=== PATIENT | female | born 1995 ===

== ENCOUNTER 2019-07-22 22:42 | Inpatient (IN) | payer MEDICAID ==
[2019-07-22] MEDS ORDERED: Sodium Chloride 0.9% 10 ML SDV IV PRN (23:25)
[2019-07-22] MEDS ORDERED: Tranexamic Acid 1,000 MG in Sodium Chloride 0.9% 100 ML IV PRN (23:25)
[2019-07-22] MEDS ORDERED: Butorphanol 1 MG/ML SDV IVPUSH PRN (23:25)
[2019-07-22] MEDS ORDERED: Sodium Chloride 0.9% 10 ML Syringe FLUSH PRN (23:25)
[2019-07-22] MEDS ORDERED: Methylergonovine 0.2 MG/1 ML Amp IM PRN (23:25)
[2019-07-22] MEDS ORDERED: Misoprostol 200 MCG Tab PO PRN (23:25)
[2019-07-22] MEDS ORDERED: Ampicillin 2 GM in Sodium Chloride 0.9% 100 ML IV ONE (23:25)
[2019-07-22] MEDS ORDERED: Water For Irrigation,Sterile 1,000 ML Container IRR PRN (23:25)
[2019-07-22] MEDS ORDERED: Ondansetron 4 MG/2 ML SDV IVPUSH PRN (23:25)
[2019-07-22] MEDS ORDERED: Lidocaine 1% 50 ML MDV INJECT PRN (23:25)
[2019-07-22] MEDS ORDERED: Nalbuphine 10 MG/1 ML Vial IVPUSH PRN (23:25)
[2019-07-22] MEDS ORDERED: Carboprost Tromethamine 250 MCG/1 ML Amp IM PRN (23:25)
[2019-07-22] MEDS ORDERED: Sodium Chloride 0.9% 2.5 ML Syringe FLUSH PRN (23:25)
[2019-07-22] MEDS ORDERED: Oxytocin/0.9 % Sodium Chloride 30 UNIT/500 ML BAG IV SCH ×2 (23:30)
[2019-07-22] MEDS ORDERED: Terbutaline 1 MG/ML SDV SUBCUT PRN (23:30)
[2019-07-22] MEDS ORDERED: Misoprostol 25 MCG (1/4 of 100 MCG) Tab VAG PRN (23:30)
[2019-07-22] MEDS ORDERED: Misoprostol 25 MCG (1/4 of 100 MCG) Tab PO PRN (23:30)
--- NOTE | 2019-07-23 00:12 | PCM.LDHP ---
L&D History of Present Illness - General Date of Service: 07/23/19 Admit Problem/Dx: Patient Status Order with Admit Dx/Problem 07/22/19 23:04 Patient Status [ADT] Routine 07/22/19 23:26 Patient Status [ADT] Routine Admission Diagnosis/Problem Admission Diagnosis/Problem 07/23/19 00:07 at 40 1/7 weeks presenting with complaints of leaking fluid x2 days; amnisure positive; GBS positive; A+, Rubella immune 07/23/19 00:13 Source of Information: Patient History Limitations: Reports: No Limitations - Related Data Allergies/Adverse Reactions: Allergies Allergy/AdvReac Type Severity Reaction Status Date / Time No Known Allergies Allergy Verified 05/29/19 14:39 H&P Review of Systems - Review of Systems: Review Of Systems: See Below General: Reports: No Symptoms HEENT: Reports: No Symptoms Pulmonary: Reports: No Symptoms Cardiovascular: Reports: No Symptoms Gastrointestinal: Reports: No Symptoms Genitourinary: Reports: No Symptoms Musculoskeletal: Reports: No Symptoms Skin: Reports: No Symptoms Psychiatric: Reports: No Symptoms Neurological: Reports: No Symptoms Hematologic/Lymphatic: Reports: No Symptoms Immunologic: Reports: No Symptoms L&D Exam - Exam Exam: See Below - Vital Signs Weight: 170 lb - OB Specific Movement: Active Heart Tones: Present Heart Rate (FHR) Variability: Moderate (6-25 bmp) - Kay Score Kay Score Cervix Position: Posterior Kay Score Consistency: Firm Kay Score Effacement: 0-30% Kay Score Dilation: 1-2 cm Kay Score Infant's Station: -3 Kay Score Total: 1 - Exam General: Alert, Oriented, Cooperative Lungs: Normal Respiratory Effort GI/Abdominal Exam: Soft, Non-Tender Rectal Exam: Deferred Genitourinary: Deferred Back Exam: Normal Inspection, Full Range of Motion Extremities: Normal Inspection, Normal Range of Motion, Non-Tender, Normal Capillary Refill Skin: Warm, Dry, Intact Neurological: Strength Equal Bilateral, Normal Gait, Normal Speech, Normal Tone , Sensation Intact Psychiatric: Alert, Normal Affect, Normal Mood - Patient Data Lab Results Last 24 hrs: Laboratory Results - last 24 hr 07/22/19 Range/Units 23:00 Membrane Rupture POSITIVE - Problem List (1) Supervision of normal IUP (intrauterine ) in primigravida SNOMED Code(s): 78746342, 645335306, 112054668, 189507797 ICD Code: Z34.00 - ENCNTR FOR SUPRVSN OF NORMAL FIRST , UNSP TRIMESTER Status: Acute Priority: High Current Visit: Yes Qualifiers: Trimester: third trimester Qualified Code(s): Z34.03 - Encounter for supervision of normal first , third trimester Problem List Initiated/Reviewed/Updated: Yes Orders Last 24hrs: Active Orders 24 hr Category Date Time Status Patient Status [ADT] Routine ADT 07/22/19 23:26 Active Bedrest Bathroom Privileges [RC] ASDIRECTED Care 07/22/19 23:30 Active Communication Order [RC] ASDIRECTED Care 07/22/19 23:30 Active Communication Order [RC] ASDIRECTED Care 07/22/19 23:30 Active Communication Order [RC] ASDIRECTED Care 07/22/19 23:30 Active Heart Tones [RC] CONTINUOUS Care 07/22/19 23:26 Active Non Stress Test [RC] PER UNIT ROUTINE Care 07/22/19 23:04 Active Non Stress Test [RC] PER UNIT ROUTINE Care 07/22/19 23:26 Active May Shower [RC] ASDIRECTED Care 07/22/19 23:26 Active Notify Provider [RC] PRN Care 07/22/19 23:26 Active Notify Provider [RC] PRN Care 07/22/19 23:30 Active Notify Provider [RC] PRN Care 07/22/19 23:30 Active Notify Provider [RC] STAT Care 07/22/19 23:30 Active Oxygen Therapy [RC] ASDIRECTED Care 07/22/19 23:30 Active Up ad Leigh [RC] ASDIRECTED Care 07/22/19 23:04 Active Up ad Leigh [RC] ASDIRECTED Care 07/22/19 23:26 Active Vaginal Exam [RC] Click to Edit Care 07/22/19 23:04 Active Vaginal Exam [RC] PRN Care 07/22/19 23:26 Active Vaginal Exam [RC] PRN Care 07/22/19 23:30 Active Vital Signs [RC] PER UNIT ROUTINE Care 07/22/19 23:04 Active Vital Signs [RC] PER UNIT ROUTINE Care 07/22/19 23:26 Active Vital Signs [RC] PER UNIT ROUTINE Care 07/22/19 23:30 Active CBC W/O DIFF,HEMOGRAM [HEME] Routine Lab 07/22/19 23:26 Ordered RPR (SYPHILIS SERO) W/ RFLX [REF] Routine Lab 07/22/19 23:26 Ordered TYPE AND SCREEN [BBK] Routine Lab 07/22/19 23:26 Ordered Butorphanol [Stadol] Med 07/22/19 23:25 Active 1 mg IVPUSH Q1H PRN Carboprost Tromethamine [Hemabate DS] Med 07/22/19 23:25 Active 250 mcg IM ASDIRECTED PRN Lactated Ringers [Ringers, Lactated] 1,000 ml Med 07/22/19 23:30 Active IV ASDIRECTED Lidocaine 1% [Xylocaine 1%] Med 07/22/19 23:25 Active 50 ml INJECT ONETIME PRN Methylergonovine [Methergine] Med 07/22/19 23:25 Active 0.2 mg IM ASDIRECTED PRN Nalbuphine [Nubain] Med 07/22/19 23:25 Active 10 mg IVPUSH Q1H PRN Ondansetron [Zofran] Med 07/22/19 23:25 Active 4 mg IVPUSH Q6H PRN Oxytocin/0.9 % Sodium Chloride [Oxytocin 30 Unit/500 ML Med 07/22/19 23:30 Active -NS] 30 unit in 500 ml IV TITRATE Oxytocin/0.9 % Sodium Chloride [Oxytocin 30 Unit/500 ML Med 07/22/19 23:30 Active -NS] 30 unit in 500 ml IV TITRATE Sodium Chloride 0.9% [Normal Saline] Med 07/22/19 23:25 Active 10 ml IV ASDIRECTED PRN Sodium Chloride 0.9% [Saline Flush] Med 07/22/19 23:25 Active 10 ml FLUSH ASDIRECTED PRN Sodium Chloride 0.9% [Saline Flush] Med 07/22/19 23:25 Active 2.5 ml FLUSH ASDIRECTED PRN Terbutaline [Brethine] Med 07/22/19 23:30 Active 0.25 mg SUBCUT ASDIRECTED PRN Tranexamic Acid [Cyklokapron] 1,000 mg Med 07/22/19 23:25 Active Sodium Chloride 0.9% [Normal Saline] 100 ml IV ONETIME Water For Irrigation,Sterile [Sterile Water for Med 07/22/19 23:25 Active Irrigation] 1,000 ml IRR ASDIRECTED PRN miSOPROStoL [Cytotec] Med 07/22/19 23:25 Active 200 mcg PO ONETIME PRN miSOPROStoL [Cytotec] Med 07/22/19 23:30 Active 25 mcg PO Q4H PRN miSOPROStoL [Cytotec] Med 07/22/19 23:30 Active 25 mcg VAG Q4H PRN Scalp Electrode [WOMSER] Per Unit Routine Oth 07/22/19 23:26 Ordered Medication Administration Instruction [OM.PC] Q3H Oth 07/22/19 23:30 Ordered Peripheral IV Insertion Adult [OM.PC] Routine Oth 07/22/19 23:26 Ordered Resuscitation Status Routine Resus Stat 07/22/19 23:04 Ordered Medication Orders Butorphanol Tartrate (Stadol) 1 mg IVPUSH Q1H PRN PRN Reason: Pain Carboprost Tromethamine (Hemabate Ds) 250 mcg IM ASDIRECTED PRN PRN Reason: Post Hemorrhage Tranexamic Acid 1,000 mg/ (Sodium Chloride) 110 mls @ 660 mls/hr IV ONETIME PRN PRN Reason: Bleeding Lactated Ringer's (Ringers, Lactated) 1,000 mls @ 150 mls/hr IV ASDIRECTED VANESSA Oxytocin/Sodium Chloride (Oxytocin 30 Unit/500 Ml-Ns) 30 unit in 500 mls @ 999 mls/hr IV TITRATE VANESSA Oxytocin/Sodium Chloride (Oxytocin 30 Unit/500 Ml-Ns) 30 unit in 500 mls @ 2 mls/hr IV TITRATE [facility]; Protocol Lidocaine HCl (Xylocaine 1%) 50 ml INJECT ONETIME PRN PRN Reason: Laceration repair Methylergonovine Maleate (Methergine) 0.2 mg IM ASDIRECTED PRN PRN Reason: Post Hemorrhage Misoprostol (Cytotec) 200 mcg PO ONETIME PRN PRN Reason: Post Hemorrhage Misoprostol (Cytotec) 25 mcg VAG Q4H PRN PRN Reason: Cervical Ripening Misoprostol (Cytotec) 25 mcg PO Q4H PRN PRN Reason: Cervical Ripening Nalbuphine HCl (Nubain) 10 mg IVPUSH Q1H PRN PRN Reason: Pain (severe 7-10) Ondansetron HCl (Zofran) 4 mg IVPUSH Q6H PRN PRN Reason: Nausea/Vomiting Sodium Chloride (Saline Flush) 10 ml FLUSH ASDIRECTED PRN PRN Reason: Keep Vein Open Sodium Chloride (Saline Flush) 2.5 ml FLUSH ASDIRECTED PRN PRN Reason: Keep Vein Open Sodium Chloride (Normal Saline) 10 ml IV ASDIRECTED PRN PRN Reason: IV Use Sterile Water (Sterile Water For Irrigation) 1,000 ml IRR ASDIRECTED PRN PRN Reason: delivery Terbutaline Sulfate (Brethine) 0.25 mg SUBCUT ASDIRECTED PRN PRN Reason: Tacysystole Assessment/Plan Comment:: Admit A: at 40 1/7 weeks; GBS positive; A+, RI; positive amnisure; 1cm/25%/-3, firm, posterior P: Admit; start IV antibiotics; Cytotec PO and PV; anticipate ; Dr. Jose L gutierrez
[2019-07-23] MEDS: Lactated Ringers 1,000 ML IV SCH ×3 (01:04→10:48)
[2019-07-23] MEDS: Ampicillin 1 GM in Sodium Chloride 0.9% 50 ML IV SCH ×3 (05:06→12:58)
[2019-07-23] MEDS ORDERED: Ropivacaine HCl/PF 100 ML ONE (05:42)
[2019-07-23] MEDS ORDERED: fentaNYL 100 MCG/2 ML SDV ONE (05:42)
--- NOTE | 2019-07-23 06:03 | PCM.PREANE ---
Preanesthetic Assessment - Anesthesia/Transfusion/Family Hx Anesthesia History: No Prior Anesthesia - Physical Assessment NPO Status Date: 07/23/19 NPO Status Time: 00:05 Height: 1.78 m Weight: 77.111 kg ASA Class: 1 - Lab Values: Laboratory Last Values WBC 13.53 K/uL (4.0-11.0) H 07/23/19 00:35 RBC 4.62 M/uL (4.30-5.90) 07/23/19 00:35 Hgb 10.7 g/dL (12.0-16.0) L 07/23/19 00:35 Hct 33.6 % (36.0-46.0) L 07/23/19 00:35 MCV 72.7 fL (80.0-98.0) L 07/23/19 00:35 MCH 23.2 pg (27.0-32.0) L 07/23/19 00:35 MCHC 31.8 g/dL (31.0-37.0) 07/23/19 00:35 RDW Std Deviation 45.1 fl (28.0-62.0) 07/23/19 00:35 RDW Coeff of Zuleyma 18 % (11.0-15.0) H 07/23/19 00:35 Plt Count 303 K/uL (150-400) 07/23/19 00:35 MPV 9.50 fL (7.40-12.00) 07/23/19 00:35 Membrane Rupture POSITIVE 07/22/19 23:00 Blood Type A POSITIVE 07/23/19 00:35 Antibody Screen NEGATIVE 07/23/19 00:35 - Allergies Allergies/Adverse Reactions: Allergies Allergy/AdvReac Type Severity Reaction Status Date / Time No Known Allergies Allergy Verified 05/29/19 14:39 - Acknowledgements Anesthesia Type Planned: Epidural Pt an Appropriate Candidate for the Planned Anesthesia: Yes Alternatives and Risks of Anesthesia Discussed w Pt/Guardian: Yes Pt/Guardian Understands and Agrees with Anesthesia Plan: Yes PreAnesthesia Questionnaire - Past Health History Medical/Surgical History: Denies Medical/Surgical History [employer] History: Reports: - CURRENT (IN HOUSE) MEDS Current Meds: Current Medications Butorphanol Tartrate (Stadol) 1 mg IVPUSH Q1H PRN PRN Reason: Pain Carboprost Tromethamine (Hemabate Ds) 250 mcg IM ASDIRECTED PRN PRN Reason: Post Hemorrhage Tranexamic Acid 1,000 mg/ (Sodium Chloride) 110 mls @ 660 mls/hr IV ONETIME PRN PRN Reason: Bleeding Lactated Ringer's (Ringers, Lactated) 1,000 mls @ 150 mls/hr IV ASDIRECTED VANESSA Last Admin: 07/23/19 01:04 Dose: 125 mls/hr Oxytocin/Sodium Chloride (Oxytocin 30 Unit/500 Ml-Ns) 30 unit in 500 mls @ 999 mls/hr IV TITRATE [facility] Oxytocin/Sodium Chloride (Oxytocin 30 Unit/500 Ml-Ns) 30 unit in 500 mls @ 2 mls/hr IV TITRATE [facility]; Protocol Ampicillin Sodium 1 gm/ Sodium (Chloride) 50 mls @ 100 mls/hr IV Q4H [facility] Last Admin: 07/23/19 05:06 Dose: 100 mls/hr Lidocaine HCl (Xylocaine 1%) 50 ml INJECT ONETIME PRN PRN Reason: Laceration repair Methylergonovine Maleate (Methergine) 0.2 mg IM ASDIRECTED PRN PRN Reason: Post Hemorrhage Misoprostol (Cytotec) 200 mcg PO ONETIME PRN PRN Reason: Post Hemorrhage Misoprostol (Cytotec) 25 mcg VAG Q4H PRN PRN Reason: Cervical Ripening Last Admin: 07/23/19 01:05 Dose: 25 mcg Misoprostol (Cytotec) 25 mcg PO Q4H PRN PRN Reason: Cervical Ripening Last Admin: 07/23/19 01:05 Dose: 25 mcg Nalbuphine HCl (Nubain) 10 mg IVPUSH Q1H PRN PRN Reason: Pain (severe 7-10) Ondansetron HCl (Zofran) 4 mg IVPUSH Q6H PRN PRN Reason: Nausea/Vomiting Sodium Chloride (Saline Flush) 10 ml FLUSH ASDIRECTED PRN PRN Reason: Keep Vein Open Sodium Chloride (Saline Flush) 2.5 ml FLUSH ASDIRECTED PRN PRN Reason: Keep Vein Open Sodium Chloride (Normal Saline) 10 ml IV ASDIRECTED PRN PRN Reason: IV Use Sterile Water (Sterile Water For Irrigation) 1,000 ml IRR ASDIRECTED PRN PRN Reason: delivery Terbutaline Sulfate (Brethine) 0.25 mg SUBCUT ASDIRECTED PRN PRN Reason: Tacysystole Discontinued Medications Fentanyl (Sublimaze) Confirm Administered Dose 100 mcg .ROUTE .STK-MED ONE Stop: 07/23/19 05:43 Ampicillin Sodium 2 gm/ Sodium (Chloride) 100 mls @ 200 mls/hr IV ONETIME ONE Stop: 07/22/19 23:54 Last Admin: 07/23/19 01:04 Dose: 200 mls/hr Ropivacaine (Naropin 0.2%) Confirm Administered Dose 100 mls @ as directed .ROUTE .STK-MED ONE Stop: 07/23/19 05:43
--- NOTE | 2019-07-23 06:07 | PCM.PRNOTE ---
- Free Text/Narrative Note: Anes Note Patient requests epidural for L&D. Sitting position, Level L2-L3 midline approach. sterile technique. Chloraprep scrub to lumbar area. Sterile fenestrated drape applied. Epidural space easily achieved single attempt with ease using NIURKA technique. NIURKA at 3 cm. Cath threaded 5 cm with ease. Cath secured at 8 cm using sterile clear adhesive dressing. 0546 Test 3 cc 1.5% lido with epi negative. 0551 Load 10 cc 0.2% ropiviciane with 1 mcg cc fentanyl in slow divided doses. 0559 Pump started with 90 cc same solution. Mick well. Time with patient [id number]
[2019-07-23] MEDS ORDERED: Bisacodyl 10 MG Supp RECTAL PRN (15:06)
[2019-07-23] MEDS ORDERED: Docusate Sodium 100 MG Cap PO PRN (15:06)
[2019-07-23] MEDS ORDERED: oxyCODONE 5 MG Tab PO PRN (15:06)
[2019-07-23] MEDS ORDERED: Ibuprofen 400 MG Tab PO PRN (15:06)
[2019-07-23] MEDS ORDERED: Acetaminophen 500 MG Tab PO PRN ×2 (15:06)
[2019-07-23] MEDS ORDERED: Lanolin 100% Cream 7 GM Tube TOP PRN (15:06)
[2019-07-23] MEDS ORDERED: Witch Hazel Medicated Pads 40/Jar TOP PRN (15:06)
[2019-07-23] MEDS ORDERED: Benzocaine/Menthol 20%-0.5% Spray 78 GM Cannister TOP PRN (15:06)
--- NOTE | 2019-07-23 15:13 | PCM.DEL ---
L & D Note - General Info Date of Service: 07/23/19 Mother's Due Date: 07/22/19 - Delivery Note Labor: Spontaneous Cervical Ripening Method: Misoprostil Delivery Outcome: Livebirth Delivery Method: Spontaneous Vaginal Delivery-Single Infant Delivery Mode: Spontaneous Presentation: Vertex Nuchal Cord: Present (x1 reduced over head. True knot noted, loose.) Anesthesia Type: Epidural Amniotic Fluid Description: Clear Episiotomy Type: None Laceration: 1st Degree, Perineal, Periurethral, Vaginal Suture type: Other (Monocryl) Suture size: 4-0 Placenta: Intact, Spontaneous Cord: 3 Vessels Estimated Blood Loss: 150 Resuscitation Needed: No Score 1 min: 8 Score 5 min: 9 Second Stage Interventions: Reports: Pushing, Pulls Own Legs Back Delivery Comments (Free Text/Narrative):: of viable male. Head delivered with great pushing, Nuchal x1 reduced over head, shoulders and body followed easily. placed on mothers abd and with stimulation began to cry. RN at for evaluation. True know noted in cord, loose. Cord clamped and cut. Cord blood collected. Pitocin to IVF. Placenta delivered grossly intact. Inspection noted three 1st deg lacerations, all repaired with 4-0 mono. Hemostasis obtained. EBL 150cc. APGARS 8/9, Wt: 8lb 10oz. Mother and baby left in stable condition for recovery. - General Info Date of Service: 07/23/19 Admission Dx/Problem (Free Text): Patient Status Order with Admit Dx/Problem 07/22/19 23:04 Patient Status [ADT] Routine 07/22/19 23:26 Patient Status [ADT] Routine Admission Diagnosis/Problem Admission Diagnosis/Problem 07/23/19 00:07 at 40 1/7 weeks presenting with complaints of leaking fluid x2 days; amnisure positive; GBS positive; A+, Rubella immune 07/23/19 00:13 Functional Status: Reports: Pain Controlled - Review of Systems General: Reports: No Symptoms HEENT: Reports: No Symptoms Pulmonary: Reports: No Symptoms Cardiovascular: Reports: No Symptoms Gastrointestinal: Reports: No Symptoms Genitourinary: Reports: No Symptoms Musculoskeletal: Reports: No Symptoms Skin: Reports: No Symptoms Neurological: Reports: No Symptoms Psychiatric: Reports: No Symptoms - Patient Data Weight - Most Recent: 77.111 kg I&O - Last 24 Hours: Intake & Output 07/23/19 07/23/19 07/23/19 06:59 14:59 22:59 Intake Total 1850 Balance 1850 Lab Results Last 24 Hours: Laboratory Results - last 24 hr 07/22/19 07/23/19 07/23/19 Range/Units 23:00 00:35 00:35 WBC 13.53 H (4.0-11.0) K/uL RBC 4.62 (4.30-5.90) M/uL Hgb 10.7 L (12.0-16.0) g/dL Hct 33.6 L (36.0-46.0) % MCV 72.7 L (80.0-98.0) fL MCH 23.2 L (27.0-32.0) pg MCHC 31.8 (31.0-37.0) g/dL RDW Std Deviation 45.1 (28.0-62.0) fl RDW Coeff of Zuleyma 18 H (11.0-15.0) % Plt Count 303 (150-400) K/uL MPV 9.50 (7.40-12.00) fL Membrane Rupture POSITIVE Blood Type A POSITIVE Antibody Screen NEGATIVE Med Orders - Current: Current Medications Acetaminophen (Tylenol Extra Strength) 500 mg PO Q4H PRN PRN Reason: Pain Acetaminophen (Tylenol Extra Strength) 1,000 mg PO Q4H PRN PRN Reason: Pain Benzocaine/Menthol (Dermoplast Pain Relief 20%-0.5% [place]) 78 gm TOP ASDIRECTED PRN PRN Reason: Perineal Comfort Measure Bisacodyl (Dulcolax) 10 mg RECTAL ONETIME PRN PRN Reason: Constipation Docusate Sodium (Colace) 100 mg PO BID PRN PRN Reason: Constipation Emollient Ointment (Lansinoh Hpa) 0 gm TOP ASDIRECTED PRN PRN Reason: Sore Nipples Oxytocin/Sodium Chloride (Oxytocin 30 Unit/500 Ml-Ns) 30 unit in 500 mls @ 2 mls/hr IV TITRATE [facility]; Protocol Ampicillin Sodium 1 gm/ Sodium (Chloride) 50 mls @ 100 mls/hr IV Q4H [facility] Last Admin: 07/23/19 12:58 Dose: 100 mls/hr Ibuprofen (Motrin) 400 mg PO Q4H PRN PRN Reason: Pain Ibuprofen (Motrin) 800 mg PO Q6H PRN PRN Reason: Pain Misoprostol (Cytotec) 25 mcg VAG Q4H PRN PRN Reason: Cervical Ripening Last Admin: 07/23/19 01:05 Dose: 25 mcg Misoprostol (Cytotec) 25 mcg PO Q4H PRN PRN Reason: Cervical Ripening Last Admin: 07/23/19 01:05 Dose: 25 mcg Oxycodone HCl (Oxycodone) 5 mg PO Q2H PRN PRN Reason: Pain Sodium Chloride (Saline Flush) 10 ml FLUSH ASDIRECTED PRN PRN Reason: Keep Vein Open Sodium Chloride (Saline Flush) 2.5 ml FLUSH ASDIRECTED PRN PRN Reason: Keep Vein Open Sodium Chloride (Normal Saline) 10 ml IV ASDIRECTED PRN PRN Reason: IV Use Terbutaline Sulfate (Brethine) 0.25 mg SUBCUT ASDIRECTED PRN PRN Reason: Tacysystole Witch Carli (Tucks) 1 pad TOP ASDIRECTED PRN PRN Reason: comfort care Discontinued Medications Butorphanol Tartrate (Stadol) 1 mg IVPUSH Q1H PRN PRN Reason: Pain Carboprost Tromethamine (Hemabate Ds) 250 mcg IM ASDIRECTED PRN PRN Reason: Post Hemorrhage Fentanyl (Sublimaze) Confirm Administered Dose 100 mcg .ROUTE .STK-MED ONE Stop: 07/23/19 05:43 Tranexamic Acid 1,000 mg/ (Sodium Chloride) 110 mls @ 660 mls/hr IV ONETIME PRN PRN Reason: Bleeding Ampicillin Sodium 2 gm/ Sodium (Chloride) 100 mls @ 200 mls/hr IV ONETIME ONE Stop: 07/22/19 23:54 Last Admin: 07/23/19 01:04 Dose: 200 mls/hr Lactated Ringer's (Ringers, Lactated) 1,000 mls @ 150 mls/hr IV ASDIRECTED ON LICENSE OF [facility] Last Admin: 07/23/19 10:48 Dose: 150 mls/hr Oxytocin/Sodium Chloride (Oxytocin 30 Unit/500 Ml-Ns) 30 unit in 500 mls @ 999 mls/hr IV TITRATE ON LICENSE OF [facility] Last Admin: 07/23/19 14:47 Dose: 999 mls/hr Ropivacaine (Naropin 0.2%) Confirm Administered Dose 100 mls @ as directed .ROUTE .[facility] ONE Stop: 07/23/19 05:43 Lidocaine HCl (Xylocaine 1%) 50 ml INJECT ONETIME PRN PRN Reason: Laceration repair Methylergonovine Maleate (Methergine) 0.2 mg IM ASDIRECTED PRN PRN Reason: Post Hemorrhage Misoprostol (Cytotec) 200 mcg PO ONETIME PRN PRN Reason: Post Hemorrhage Nalbuphine HCl (Nubain) 10 mg IVPUSH Q1H PRN PRN Reason: Pain (severe 7-10) Ondansetron HCl (Zofran) 4 mg IVPUSH Q6H PRN PRN Reason: Nausea/Vomiting Sterile Water (Sterile Water For Irrigation) 1,000 ml IRR ASDIRECTED PRN PRN Reason: delivery - Exam General: Alert, Oriented, Cooperative, No Acute Distress Lungs: Normal Respiratory Effort GI/Abdominal Exam: Soft, Non-Tender (Female) Exam: Normal External Exam, Normal Bimanual Exam, Vaginal Bleeding, Vaginal Lesions. No: Cervical Lesions Back Exam: Normal Inspection, Full Range of Motion Extremities: Normal Inspection, Normal Range of Motion, Non-Tender, No Pedal Edema, Normal Capillary Refill Skin: Warm, Dry, Intact Wound/Incisions: Healing Well Neurological: No New Focal Deficit, Normal Speech, Normal Tone, Strength Equal Bilateral, Sensation Intact Psy/Mental Status: Alert, Normal Affect, Normal Mood - Problem List & Annotations (1) (normal spontaneous vaginal delivery) SNOMED Code(s): 35933397, 913929505 Code(s): O80 - ENCOUNTER FOR FULL-TERM UNCOMPLICATED DELIVERY Status: Acute Priority: High Current Visit: Yes (2) Supervision of normal IUP (intrauterine ) in primigravida SNOMED Code(s): 08445937, 999030974, 023910930, 387804473 Code(s): Z34.00 - ENCNTR FOR SUPRVSN OF NORMAL FIRST , UNSP TRIMESTER Status: Acute Priority: High Current Visit: Yes Qualifiers: Trimester: third trimester Qualified Code(s): Z34.03 - Encounter for supervision of normal first , third trimester - Problem List Review Problem List Initiated/Reviewed/Updated: Yes - My Orders Last 24 Hours: My Active Orders 07/23/19 15:06 Acetaminophen [Tylenol Extra Strength] 1,000 mg PO Q4H PRN Acetaminophen [Tylenol Extra Strength] 500 mg PO Q4H PRN Benzocaine/Menthol [Dermoplast Pain Relief 20%-0.5% [place]] 78 gm TOP ASDIRECTED PRN Docusate Sodium [Colace] 100 mg PO BID PRN Ibuprofen [Motrin] 400 mg PO Q4H PRN Ibuprofen [Motrin] 800 mg PO Q6H PRN Lanolin [Lansinoh HPA] See Dose Instructions TOP ASDIRECTED PRN bisacodyL [Dulcolax] 10 mg RECTAL ONETIME PRN oxyCODONE 5 mg PO Q2H PRN witch Carli [Tucks] 1 pad TOP ASDIRECTED PRN Resuscitation Status Routine 07/23/19 15:07 May Shower [RC] ASDIRECTED Up ad Leigh [RC] ASDIRECTED Vital Signs [RC] PER UNIT ROUTINE Assess Lochia [WOMSER] Per Unit Routine Assess Uterine Involution [WOMSER] Per Unit Routine Peripheral IV Discontinue [OM.PC] Routine 07/23/19 15:08 Patient Status [ADT] Routine 07/23/19 Lunch Regular Diet [DIET] - Plan Plan:: Admit A: at 40 1/7 weeks; GBS positive; A+, RI; positive amnisure; 1cm/25%/-3, firm, posterior P: Admit; start IV antibiotics; Cytotec PO and PV; anticipate ; Dr. Domingo updated Delivery A: of viable male, APGARS 8/9, Wt: 8lb 10oz, Vag lacerations x3 with repair. EBL 150cc. Stable P: Routine pp plan of care.
[2019-07-23] MEDS: Ibuprofen 800 MG Tab PO PRN ×2 (16:30→23:51)
--- NOTE | 2019-07-23 16:59 | PCM48HPAN ---
Post Anesthesia Note - EVALUATION WITHIN 48HRS OF ANESTHETIC Vital Signs in Normal Range: Yes Patient Participated in Evaluation: Yes Respiratory Function Stable: Yes Airway Patent: Yes Cardiovascular Function Stable: Yes Hydration Status Stable: Yes Pain Control Satisfactory: Yes Nausea and Vomiting Control Satisfactory: Yes Mental Status Recovered: Yes - COMMENTS/OBSERVATIONS Free Text/Narrative:: did well.
[2019-07-24] MEDS: Ibuprofen 800 MG Tab PO PRN ×2 (07:34→23:21)
--- NOTE | 2019-07-24 08:29 | PCM.PNPP ---
- General Info Date of Service: 07/24/19 Admission Dx/Problem (Free Text): Patient Status Order with Admit Dx/Problem 07/22/19 23:04 Patient Status [ADT] Routine 07/22/19 23:26 Patient Status [ADT] Routine Admission Diagnosis/Problem Admission Diagnosis/Problem 07/23/19 00:07 at 40 1/7 weeks presenting with complaints of leaking fluid x2 days; amnisure positive; GBS positive; A+, Rubella immune 07/23/19 00:13 Functional Status: Reports: Pain Controlled, Tolerating Diet, Ambulating, Urinating - Review of Systems General: Reports: No Symptoms HEENT: Reports: No Symptoms Pulmonary: Reports: No Symptoms Cardiovascular: Reports: No Symptoms Gastrointestinal: Reports: No Symptoms Genitourinary: Reports: No Symptoms Musculoskeletal: Reports: No Symptoms Skin: Reports: No Symptoms Neurological: Reports: No Symptoms Psychiatric: Reports: No Symptoms - General Info Date of Service: 07/24/19 - Patient Data Vital Signs - Most Recent: Last Vital Signs Temp 36.0 C L 07/24/19 05:10 Pulse 98 07/24/19 05:10 Resp 17 07/24/19 05:10 BP 122/83 07/24/19 05:10 Pulse Ox 100 07/24/19 05:10 Weight - Most Recent: 77.111 kg I&O - Last 24 Hours: Intake & Output 07/23/19 07/24/19 07/24/19 22:59 06:59 14:59 Intake Total 500 Balance 500 Med Orders - Current: Current Medications Acetaminophen (Tylenol Extra Strength) 500 mg PO Q4H PRN PRN Reason: Pain Acetaminophen (Tylenol Extra Strength) 1,000 mg PO Q4H PRN PRN Reason: Pain Benzocaine/Menthol (Dermoplast Pain Relief 20%-0.5% [place]) 78 gm TOP ASDIRECTED PRN PRN Reason: Perineal Comfort Measure Last Admin: 07/23/19 16:31 Dose: 1 spray Bisacodyl (Dulcolax) 10 mg RECTAL ONETIME PRN PRN Reason: Constipation Docusate Sodium (Colace) 100 mg PO BID PRN PRN Reason: Constipation Last Admin: 07/23/19 16:30 Dose: 100 mg Emollient Ointment (Lansinoh Hpa) 0 gm TOP ASDIRECTED PRN PRN Reason: Sore Nipples Last Admin: 07/23/19 16:28 Dose: 7 g Oxytocin/Sodium Chloride (Oxytocin 30 Unit/500 Ml-Ns) 30 unit in 500 mls @ 2 mls/hr IV TITRATE VANESSA; Protocol Ibuprofen (Motrin) 400 mg PO Q4H PRN PRN Reason: Pain Ibuprofen (Motrin) 800 mg PO Q6H PRN PRN Reason: Pain Last Admin: 07/24/19 07:34 Dose: 800 mg Misoprostol (Cytotec) 25 mcg VAG Q4H PRN PRN Reason: Cervical Ripening Last Admin: 07/23/19 01:05 Dose: 25 mcg Misoprostol (Cytotec) 25 mcg PO Q4H PRN PRN Reason: Cervical Ripening Last Admin: 07/23/19 01:05 Dose: 25 mcg Oxycodone HCl (Oxycodone) 5 mg PO Q2H PRN PRN Reason: Pain Sodium Chloride (Saline Flush) 10 ml FLUSH ASDIRECTED PRN PRN Reason: Keep Vein Open Sodium Chloride (Saline Flush) 2.5 ml FLUSH ASDIRECTED PRN PRN Reason: Keep Vein Open Sodium Chloride (Normal Saline) 10 ml IV ASDIRECTED PRN PRN Reason: IV Use Terbutaline Sulfate (Brethine) 0.25 mg SUBCUT ASDIRECTED PRN PRN Reason: Tacysystole Witch Mino (Tucks) 1 pad TOP ASDIRECTED PRN PRN Reason: comfort care Last Admin: 07/24/19 07:36 Dose: 1 pad Discontinued Medications Butorphanol Tartrate (Stadol) 1 mg IVPUSH Q1H PRN PRN Reason: Pain Carboprost Tromethamine (Hemabate Ds) 250 mcg IM ASDIRECTED PRN PRN Reason: Post Hemorrhage Fentanyl (Sublimaze) Confirm Administered Dose 100 mcg .ROUTE .STK-MED ONE Stop: 07/23/19 05:43 Tranexamic Acid 1,000 mg/ (Sodium Chloride) 110 mls @ 660 mls/hr IV ONETIME PRN PRN Reason: Bleeding Ampicillin Sodium 2 gm/ Sodium (Chloride) 100 mls @ 200 mls/hr IV ONETIME ONE Stop: 07/22/19 23:54 Last Admin: 07/23/19 01:04 Dose: 200 mls/hr Lactated Ringer's (Ringers, Lactated) 1,000 mls @ 150 mls/hr IV ASDIRECTED [facility] Last Admin: 07/23/19 10:48 Dose: 150 mls/hr Oxytocin/Sodium Chloride (Oxytocin 30 Unit/500 Ml-Ns) 30 unit in 500 mls @ 999 mls/hr IV TITRATE [facility] Last Admin: 07/23/19 14:47 Dose: 999 mls/hr Ampicillin Sodium 1 gm/ Sodium (Chloride) 50 mls @ 100 mls/hr IV Q4H [facility] Last Admin: 07/23/19 12:58 Dose: 100 mls/hr Ropivacaine (Naropin 0.2%) Confirm Administered Dose 100 mls @ as directed .ROUTE .[facility] ONE Stop: 07/23/19 05:43 Lidocaine HCl (Xylocaine 1%) 50 ml INJECT ONETIME PRN PRN Reason: Laceration repair Methylergonovine Maleate (Methergine) 0.2 mg IM ASDIRECTED PRN PRN Reason: Post Hemorrhage Misoprostol (Cytotec) 200 mcg PO ONETIME PRN PRN Reason: Post Hemorrhage Nalbuphine HCl (Nubain) 10 mg IVPUSH Q1H PRN PRN Reason: Pain (severe 7-10) Ondansetron HCl (Zofran) 4 mg IVPUSH Q6H PRN PRN Reason: Nausea/Vomiting Sterile Water (Sterile Water For Irrigation) 1,000 ml IRR ASDIRECTED PRN PRN Reason: delivery - Interaction Infant Disposition, : Infant in nursery on antibiotics Infant Interaction: Unable to Hold Infant at this Time Feeding: Other (see below) (Pumping) Support Person: - Recovery Exam Fundal Tone: Firm Fundal Level: 2 Fingerbreadths Below Umbilicus Fundal Placement: Midline Lochia Amount: Scant Lochia Color: Rubra/Red Perineum Description: Edematous Episiotomy/Laceration: Approximated Bladder Status: Nonpalpable, Voiding - Exam General: Alert, Oriented, Cooperative, No Acute Distress Lungs: Normal Respiratory Effort GI/Abdominal Exam: Soft, Non-Tender Extremities: Normal Inspection Skin: Warm, Dry, Intact Wound/Incisions: Healing Well Neurological: No New Focal Deficit, Normal Gait, Normal Speech, Normal Tone, Strength Equal Bilateral, Sensation Intact Psy/Mental Status: Alert, Normal Affect, Normal Mood - Problem List & Annotations (1) (normal spontaneous vaginal delivery) SNOMED Code(s): 02764653, 243769120 Code(s): O80 - ENCOUNTER FOR FULL-TERM UNCOMPLICATED DELIVERY Status: Acute Priority: High Current Visit: Yes (2) Supervision of normal IUP (intrauterine ) in primigravida SNOMED Code(s): 42221028, 758044680, 342894547, 899818453 Code(s): Z34.00 - ENCNTR FOR SUPRVSN OF NORMAL FIRST , UNSP TRIMESTER Status: Acute Priority: High Current Visit: Yes Qualifiers: Trimester: third trimester Qualified Code(s): Z34.03 - Encounter for supervision of normal first , third trimester - Problem List Review Problem List Initiated/Reviewed/Updated: Yes - My Orders Last 24 Hours: My Active Orders 07/23/19 15:06 Acetaminophen [Tylenol Extra Strength] 1,000 mg PO Q4H PRN Acetaminophen [Tylenol Extra Strength] 500 mg PO Q4H PRN Benzocaine/Menthol [Dermoplast Pain Relief 20%-0.5% [place]] 78 gm TOP ASDIRECTED PRN Docusate Sodium [Colace] 100 mg PO BID PRN Ibuprofen [Motrin] 400 mg PO Q4H PRN Ibuprofen [Motrin] 800 mg PO Q6H PRN Lanolin [Lansinoh HPA] See Dose Instructions TOP ASDIRECTED PRN bisacodyL [Dulcolax] 10 mg RECTAL ONETIME PRN oxyCODONE 5 mg PO Q2H PRN witch Mino [Tucks] 1 pad TOP ASDIRECTED PRN Resuscitation Status Routine 07/23/19 15:07 May Shower [RC] ASDIRECTED Assess Lochia [WOMSER] Per Unit Routine Assess Uterine Involution [WOMSER] Per Unit Routine Peripheral IV Discontinue [OM.PC] Routine 07/23/19 15:08 Patient Status [ADT] Routine 07/23/19 Lunch Regular Diet [DIET] - Plan Plan:: Admit A: at 40 1/7 weeks; GBS positive; A+, RI; positive amnisure; 1cm/25%/-3, firm, posterior P: Admit; start IV antibiotics; Cytotec PO and PV; anticipate ; Dr. Domingo updated Delivery A: of viable male, APGARS 8/9, Wt: 8lb 10oz, Vag lacerations x3 with repair. EBL 150cc. Stable P: Routine pp plan of care. PPD#1 A: VSS, AF, lochia small, FF 2BU, pumping breast milk. Infant in nursery. P: continue pp plan of care
[2019-07-25] MEDS: Ibuprofen 800 MG Tab PO PRN (07:46)
--- NOTE | 2019-07-25 08:59 | PCM.PNPP ---
- General Info Date of Service: 07/25/19 Admission Dx/Problem (Free Text): Patient Status Order with Admit Dx/Problem 07/22/19 23:04 Patient Status [ADT] Routine 07/22/19 23:26 Patient Status [ADT] Routine Admission Diagnosis/Problem Admission Diagnosis/Problem 07/23/19 00:07 at 40 1/7 weeks presenting with complaints of leaking fluid x2 days; amnisure positive; GBS positive; A+, Rubella immune 07/23/19 00:13 Functional Status: Reports: Pain Controlled - Review of Systems General: Reports: No Symptoms HEENT: Reports: No Symptoms Pulmonary: Reports: No Symptoms Cardiovascular: Reports: No Symptoms Gastrointestinal: Reports: No Symptoms Genitourinary: Reports: No Symptoms Musculoskeletal: Reports: No Symptoms Skin: Reports: No Symptoms Neurological: Reports: No Symptoms Psychiatric: Reports: No Symptoms - General Info Date of Service: 07/25/19 - Patient Data Vital Signs - Most Recent: Last Vital Signs Temp 98 F 07/25/19 04:52 Pulse 83 07/25/19 04:52 Resp 16 07/25/19 04:52 BP 119/76 07/25/19 04:52 Pulse Ox 100 07/25/19 04:52 Weight - Most Recent: 170 lb Lab Results - Last 24 Hours: Laboratory Results - last 24 hr 07/23/19 Range/Units 00:35 RPR Non-Reac (Non-Reac) Med Orders - Current: Current Medications Acetaminophen (Tylenol Extra Strength) 500 mg PO Q4H PRN PRN Reason: Pain Acetaminophen (Tylenol Extra Strength) 1,000 mg PO Q4H PRN PRN Reason: Pain Last Admin: 07/24/19 23:10 Dose: 1,000 mg Benzocaine/Menthol (Dermoplast Pain Relief 20%-0.5% [place]) 78 gm TOP ASDIRECTED PRN PRN Reason: Perineal Comfort Measure Last Admin: 07/23/19 16:31 Dose: 1 spray Bisacodyl (Dulcolax) 10 mg RECTAL ONETIME PRN PRN Reason: Constipation Docusate Sodium (Colace) 100 mg PO BID PRN PRN Reason: Constipation Last Admin: 07/23/19 16:30 Dose: 100 mg Emollient Ointment (Lansinoh Hpa) 0 gm TOP ASDIRECTED PRN PRN Reason: Sore Nipples Last Admin: 07/23/19 16:28 Dose: 7 g Oxytocin/Sodium Chloride (Oxytocin 30 Unit/500 Ml-Ns) 30 unit in 500 mls @ 2 mls/hr IV TITRATE VANESSA; Protocol Ibuprofen (Motrin) 400 mg PO Q4H PRN PRN Reason: Pain Ibuprofen (Motrin) 800 mg PO Q6H PRN PRN Reason: Pain Last Admin: 07/25/19 07:46 Dose: 800 mg Misoprostol (Cytotec) 25 mcg VAG Q4H PRN PRN Reason: Cervical Ripening Last Admin: 07/23/19 01:05 Dose: 25 mcg Misoprostol (Cytotec) 25 mcg PO Q4H PRN PRN Reason: Cervical Ripening Last Admin: 07/23/19 01:05 Dose: 25 mcg Oxycodone HCl (Oxycodone) 5 mg PO Q2H PRN PRN Reason: Pain Sodium Chloride (Saline Flush) 10 ml FLUSH ASDIRECTED PRN PRN Reason: Keep Vein Open Sodium Chloride (Saline Flush) 2.5 ml FLUSH ASDIRECTED PRN PRN Reason: Keep Vein Open Sodium Chloride (Normal Saline) 10 ml IV ASDIRECTED PRN PRN Reason: IV Use Terbutaline Sulfate (Brethine) 0.25 mg SUBCUT ASDIRECTED PRN PRN Reason: Tacysystole Witch Carli (Tucks) 1 pad TOP ASDIRECTED PRN PRN Reason: comfort care Last Admin: 07/24/19 07:36 Dose: 1 pad Discontinued Medications Butorphanol Tartrate (Stadol) 1 mg IVPUSH Q1H PRN PRN Reason: Pain Carboprost Tromethamine (Hemabate Ds) 250 mcg IM ASDIRECTED PRN PRN Reason: Post Hemorrhage Fentanyl (Sublimaze) Confirm Administered Dose 100 mcg .ROUTE .STK-MED ONE Stop: 07/23/19 05:43 Last Admin: 07/24/19 18:30 Dose: Not Given Tranexamic Acid 1,000 mg/ (Sodium Chloride) 110 mls @ 660 mls/hr IV ONETIME PRN PRN Reason: Bleeding Ampicillin Sodium 2 gm/ Sodium (Chloride) 100 mls @ 200 mls/hr IV ONETIME ONE Stop: 04/19/20 23:54 Last Admin: 07/23/19 01:04 Dose: 200 mls/hr Lactated Ringer's (Ringers, Lactated) 1,000 mls @ 150 mls/hr IV ASDIRECTED [facility] Last Admin: 07/23/19 10:48 Dose: 150 mls/hr Oxytocin/Sodium Chloride (Oxytocin 30 Unit/500 Ml-Ns) 30 unit in 500 mls @ 999 mls/hr IV TITRATE [facility] Last Admin: 07/23/19 14:47 Dose: 999 mls/hr Ampicillin Sodium 1 gm/ Sodium (Chloride) 50 mls @ 100 mls/hr IV Q4H [facility] Last Admin: 07/23/19 12:58 Dose: 100 mls/hr Ropivacaine (Naropin 0.2%) Confirm Administered Dose 100 mls @ as directed .ROUTE .[facility]-MED ONE Stop: 07/23/19 05:43 Last Admin: 07/24/19 18:30 Dose: Not Given Lidocaine HCl (Xylocaine 1%) 50 ml INJECT ONETIME PRN PRN Reason: Laceration repair Methylergonovine Maleate (Methergine) 0.2 mg IM ASDIRECTED PRN PRN Reason: Post Hemorrhage Misoprostol (Cytotec) 200 mcg PO ONETIME PRN PRN Reason: Post Hemorrhage Nalbuphine HCl (Nubain) 10 mg IVPUSH Q1H PRN PRN Reason: Pain (severe 7-10) Ondansetron HCl (Zofran) 4 mg IVPUSH Q6H PRN PRN Reason: Nausea/Vomiting Sterile Water (Sterile Water For Irrigation) 1,000 ml IRR ASDIRECTED PRN PRN Reason: delivery - Interaction Disposition, : at Bedside Interaction: Holding Infant Feeding: Bottle Fed Infant, Continues to Breastfeed, Other (see below) ( Pumping) Support Person: - Recovery Exam Fundal Tone: Firm Fundal Level: 1 Fingerbreadths Below Umbilicus Fundal Placement: Midline Lochia Amount: Scant Lochia Color: Rubra/Red Perineum Description: Intact, Minimal Bruising/Swelling Episiotomy/Laceration: Approximated Bladder Status: Nonpalpable, Voiding - Exam General: Alert, Oriented HEENT: Pupils Equal, Pupils Reactive Neck: Supple Lungs: Clear to Auscultation, Normal Respiratory Effort Cardiovascular: Regular Rate, Regular Rhythm GI/Abdominal Exam: Normal Bowel Sounds, Soft, Non-Tender, No Organomegaly, No Distention Extremities: Normal Inspection, Normal Range of Motion, Non-Tender, No Pedal Edema, Normal Capillary Refill Skin: Warm, Dry, Intact Wound/Incisions: Healing Well Neurological: No New Focal Deficit Psy/Mental Status: Alert, Normal Affect, Normal Mood - Problem List & Annotations (1) (normal spontaneous vaginal delivery) SNOMED Code(s): 91643404, 291598546 Code(s): O80 - ENCOUNTER FOR FULL-TERM UNCOMPLICATED DELIVERY Status: Acute Priority: High Current Visit: Yes - Problem List Review Problem List Initiated/Reviewed/Updated: Yes - Assessment Assessment:: Megha is a 24 yo PPD2 S/P of term, viable NBM. A pos, RI, GBS pos. Adequate antibiotic prophylaxis. - Plan Plan:: Continue with normal course of care, .
--- NOTE | 2019-07-25 17:00 | PCM.DCSUM1 ---
Discharge Summary - Hospital Course Free Text/Narrative:: Megha is a 24 yo PPD2 S/P of term, viable NBM. A pos, RI, GBS pos. Patient hemodynamically stable, independent, and verbalizes readiness for discharge with NBM today. Diagnosis: Stroke: No - Discharge Data Discharge Date: 07/25/19 Discharge Disposition: Home, Self-Care 01 Condition: Good - Referral to Home Health Primary Care Physician: PCP None - Discharge Diagnosis/Problem(s) (1) (normal spontaneous vaginal delivery) SNOMED Code(s): 51581647, 769235226 ICD Code: O80 - ENCOUNTER FOR FULL-TERM UNCOMPLICATED DELIVERY Status: Acute Priority: High Current Visit: Yes - Patient Instructions Diet: Regular Diet as Tolerated, Drink 8-10+ Glasses/Day Activity: Apply Ice, As Tolerated, No Strenuous Activities Driving: May Drive Today Showering/Bathing: May Shower Notify Provider of: Fever, Increased Pain, Swelling and Redness, Drainage, Nausea and/or Vomiting - Discharge Plan *PRESCRIPTION DRUG MONITORING PROGRAM REVIEWED*: No *COPY OF PRESCRIPTION DRUG MONITORING REPORT IN PATIENT VANESSA: No Home Medications: Home Meds Ibuprofen [Motrin] 800 mg PO Q6H PRN tablet 07/25/19 [Rx] Oxygen Therapy Mode: Room Air Patient Handouts: Baby Blues, Care After Vaginal Delivery Referrals: [facility] [Outside] Leidy Lou, PRADEEP, MANAGER ONLINE [Mid-] - 09/05/19 2:00 pm - Discharge Summary/Plan Comment DC Time >30 min.: No (Ok to discharge now) - General Info Date of Service: 07/25/19 Admission Dx/Problem (Free Text: Patient Status Order with Admit Dx/Problem 07/22/19 23:04 Patient Status [ADT] Routine 07/22/19 23:26 Patient Status [ADT] Routine Admission Diagnosis/Problem Admission Diagnosis/Problem 07/23/19 00:07 at 40 1/7 weeks presenting with complaints of leaking fluid x2 days; amnisure positive; GBS positive; A+, Rubella immune 07/23/19 00:13 Functional Status: Reports: Pain Controlled - Review of Systems General: Reports: No Symptoms HEENT: Reports: No Symptoms Pulmonary: Reports: No Symptoms Cardiovascular: Reports: No Symptoms Gastrointestinal: Reports: No Symptoms Genitourinary: Reports: No Symptoms Musculoskeletal: Reports: No Symptoms Skin: Reports: No Symptoms Neurological: Reports: No Symptoms Psychiatric: Reports: No Symptoms - Patient Data Vitals - Most Recent: Last Vital Signs Temp 97.9 F 07/25/19 16:37 Pulse 104 H 07/25/19 16:37 Resp 18 07/25/19 16:37 BP 120/68 07/25/19 16:37 Pulse Ox 99 07/25/19 16:37 Weight - Most Recent: 170 lb Med Orders - Current: Current Medications Acetaminophen (Tylenol Extra Strength) 500 mg PO Q4H PRN PRN Reason: Pain Acetaminophen (Tylenol Extra Strength) 1,000 mg PO Q4H PRN PRN Reason: Pain Last Admin: 07/24/19 23:10 Dose: 1,000 mg Benzocaine/Menthol (Dermoplast Pain Relief 20%-0.5% [place]) 78 gm TOP ASDIRECTED PRN PRN Reason: Perineal Comfort Measure Last Admin: 07/23/19 16:31 Dose: 1 spray Bisacodyl (Dulcolax) 10 mg RECTAL ONETIME PRN PRN Reason: Constipation Docusate Sodium (Colace) 100 mg PO BID PRN PRN Reason: Constipation Last Admin: 07/23/19 16:30 Dose: 100 mg Emollient Ointment (Lansinoh Hpa) 0 gm TOP ASDIRECTED PRN PRN Reason: Sore Nipples Last Admin: 07/23/19 16:28 Dose: 7 g Oxytocin/Sodium Chloride (Oxytocin 30 Unit/500 Ml-Ns) 30 unit in 500 mls @ 2 mls/hr IV TITRATE VANESSA; Protocol Ibuprofen (Motrin) 400 mg PO Q4H PRN PRN Reason: Pain Ibuprofen (Motrin) 800 mg PO Q6H PRN PRN Reason: Pain Last Admin: 07/25/19 07:46 Dose: 800 mg Misoprostol (Cytotec) 25 mcg VAG Q4H PRN PRN Reason: Cervical Ripening Last Admin: 07/23/19 01:05 Dose: 25 mcg Misoprostol (Cytotec) 25 mcg PO Q4H PRN PRN Reason: Cervical Ripening Last Admin: 07/23/19 01:05 Dose: 25 mcg Oxycodone HCl (Oxycodone) 5 mg PO Q2H PRN PRN Reason: Pain Sodium Chloride (Saline Flush) 10 ml FLUSH ASDIRECTED PRN PRN Reason: Keep Vein Open Sodium Chloride (Saline Flush) 2.5 ml FLUSH ASDIRECTED PRN PRN Reason: Keep Vein Open Sodium Chloride (Normal Saline) 10 ml IV ASDIRECTED PRN PRN Reason: IV Use Terbutaline Sulfate (Brethine) 0.25 mg SUBCUT ASDIRECTED PRN PRN Reason: Tacysystole Witch Carli (Tucks) 1 pad TOP ASDIRECTED PRN PRN Reason: comfort care Last Admin: 07/24/19 07:36 Dose: 1 pad Discontinued Medications Butorphanol Tartrate (Stadol) 1 mg IVPUSH Q1H PRN PRN Reason: Pain Carboprost Tromethamine (Hemabate Ds) 250 mcg IM ASDIRECTED PRN PRN Reason: Post Hemorrhage Fentanyl (Sublimaze) Confirm Administered Dose 100 mcg .ROUTE .[facility] [employer]-MED ONE Stop: 07/23/19 05:43 Last Admin: 07/24/19 18:30 Dose: Not Given Tranexamic Acid 1,000 mg/ (Sodium Chloride) 110 mls @ 660 mls/hr IV ONETIME PRN PRN Reason: Bleeding Ampicillin Sodium 2 gm/ Sodium (Chloride) 100 mls @ 200 mls/hr IV ONETIME ONE Stop: 07/22/19 23:54 Last Admin: 07/23/19 01:04 Dose: 200 mls/hr Lactated Ringer's (Ringers, Lactated) 1,000 mls @ 150 mls/hr IV ASDIRECTED [facility] Last Admin: 07/23/19 10:48 Dose: 150 mls/hr Oxytocin/Sodium Chloride (Oxytocin 30 Unit/500 Ml-Ns) 30 unit in 500 mls @ 999 mls/hr IV TITRATE [facility] Last Admin: 07/23/19 14:47 Dose: 999 mls/hr Ampicillin Sodium 1 gm/ Sodium (Chloride) 50 mls @ 100 mls/hr IV Q4H [facility] Last Admin: 07/23/19 12:58 Dose: 100 mls/hr Ropivacaine (Naropin 0.2%) Confirm Administered Dose 100 mls @ as directed .ROUTE .[employer] ONE Stop: 07/23/19 05:43 Last Admin: 07/24/19 18:30 Dose: Not Given Lidocaine HCl (Xylocaine 1%) 50 ml INJECT ONETIME PRN PRN Reason: Laceration repair Methylergonovine Maleate (Methergine) 0.2 mg IM ASDIRECTED PRN PRN Reason: Post Hemorrhage Misoprostol (Cytotec) 200 mcg PO ONETIME PRN PRN Reason: Post Hemorrhage Nalbuphine HCl (Nubain) 10 mg IVPUSH Q1H PRN PRN Reason: Pain (severe 7-10) Ondansetron HCl (Zofran) 4 mg IVPUSH Q6H PRN PRN Reason: Nausea/Vomiting Sterile Water (Sterile Water For Irrigation) 1,000 ml IRR ASDIRECTED PRN PRN Reason: delivery - Exam General: Reports: Alert, Oriented HEENT: Reports: Pupils Equal, Pupils Reactive, Mucous Membr. Moist/[place] Neck: Reports: Supple Lungs: Reports: Clear to Auscultation, Normal Respiratory Effort Cardiovascular: Reports: Regular Rate, Regular Rhythm GI/Abdominal Exam: Normal Bowel Sounds, Soft, Non-Tender, No Organomegaly, No Distention, Other (U firm -1) (Female) Exam: Deferred, Vaginal Bleeding (Small to moderate rubra lochia) Rectal (Female) Exam: Deferred Back Exam: Reports: Normal Inspection, Full Range of Motion Extremities: Normal Inspection, Normal Range of Motion, Non-Tender, No Pedal Edema, Normal Capillary Refill Skin: Reports: Warm, Dry, Intact Wound/Incisions: Reports: Healing Well Neurological: Reports: No New Focal Deficit Psy/Mental Status: Reports: Alert, Normal Affect, Normal Mood
== END 2019-07-25 18:55 | disposition home or self-care (01) | DRG 807 ==
LOC: MW.OBCHECK 22:42 → MW.OB 22:42 → MW.OBCHECK 23:26 → OBSVTOIN 07-23 15:08 → MW.OB 07-23 17:40
PROVIDERS: ADMIT Obstetrics & Gynecology; ATTEND Obstetrics & Gynecology
PROC: 10E0XZZ Delivery of Products of Conception, External Approach (ICD-10-PCS; principal; 2019-07-23)
PROC: 0HQ9XZZ Repair Perineum Skin, External Approach (ICD-10-PCS; 2019-07-23)
PROC: 3E0P7VZ Introduction of Hormone into Female Reproductive, Via Natural or Artificial Opening (ICD-10-PCS; 2019-07-23)
PROC: 3E0R3BZ Introduction of Anesthetic Agent into Spinal Canal, Percutaneous Approach (ICD-10-PCS; 2019-07-23)
PROC: 00HU33Z Insertion of Infusion Device into Spinal Canal, Percutaneous Approach (ICD-10-PCS; 2019-07-23)
DX: O48.0 Post-term pregnancy (principal); Z37.0 Single live birth; O99.824 Streptococcus B carrier state complicating childbirth; Z3A.40 40 weeks gestation of pregnancy; O69.81X0 Labor and delivery complicated by cord around neck, without compression, not applicable or unspecified; O70.0 First degree perineal laceration during delivery
CPT/HCPCS: 01967; 36415; 51702; 59025; 59409; 84112; 85027; 86592; 86593; 86850; 86900; 86901; A9270-GY; J0290; J2590; J7050; J7120